=== PATIENT | female | born 1990 ===

== ENCOUNTER 2018-01-13 20:05 | Inpatient (IN) | payer OTHER ==
[~2018-01-13] VITALS: Ht 162.6 cm; Wt 87.5 kg
[2018-01-13 21:27] LABS: ABSOLUTE BASOPHIL COUNT 0 /CUMM (0.0-0.2); ABSOLUTE EOSINOPHIL COUNT 0.1 /CUMM (0.0-0.7); ABSOLUTE GRANULOCYTE CT 6.1 /CUMM (1.4-6.5); ABSOLUTE MONOCYTE COUNT 0.7 /CUMM (0.10-0.60); BASOPHIL % 0.3 % (0.0-2.0); EOSINOPHIL % 0.9 % (0-5); GRANULOCYTE % 77.6 % (42.2-75.2); HEMATOCRIT 39.2 % (37-47); MEAN CORPUSCULAR HGB 33.2 PG (27.0-31.0); MEAN CORPUSCULAR HGB CONC 34.8 G/DL (33.0-37.0); MEAN CORPUSCULAR VOLUME 95.2 FL (81.0-99.0); MEAN PLATELET VOLUME 8.2 FL (7.4-10.4); PLATELET COUNT 215 /CUMM (130-400); RED BLOOD CELL CT 4.12 /CUMM (4.20-5.40); WHITE BLOOD CELL COUNT 7.9 /CUMM (4.8-10.8)
--- NOTE | 2018-01-14 01:31 | History & Physical ---
General Information and HPI MD Statement: I have seen and personally examined DAYNA KELLY and documented this H&P. The patient is a 27 year old female at 41 weeks and 2 days gestation who presented with a chief complaint of labor pains, +FM, -ROM,-VB.. 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 EENTM: Denies: blurred vision, double vision, visual changes. Cardiovascular: Denies: chest pain, palpitations. Respiratory: Denies: cough, short of breath. GI: Denies: diarrhea, nausea, vomiting. Genitourinary: Denies: frequency. Neurological/Psychological: Denies: anxiety, depressed. Exam & Diagnostic Data Last 24 Hrs of Vital Signs/I&O vss Obstetric Exam Wgt Gained During : 40# Pelvimetry: seems adequate Dilation (cm): 1 Effacement (%): 50 Station: -2 Membranes: intact Fluid: unknown Fundal Height (cm): 39 Multiple Gestation? No Contractions: q4-5 min Infant #1 - FHR Baseline: 144 Category: 1 Estimated Weight: 3600g Presentation: vtx Patient for Induction? No Physical Exam General Appearance Alert, Oriented X3, Cooperative, Mild Distress Skin No Rashes HEENT Atraumatic Neck Supple Cardiovascular Regular Rate Lungs Clear to Auscultation Abdomen Soft Neurological Normal Gait, Normal Speech, Strength at 5/5 X4 Ext Labs Blood Type & Rh: O POS Antibody Screen: NEG Hct/Hgb & Platelets #1: 40.3/13.6/217 Hct/Hgb & Platelets #2: 35.8/12.2/197 Rubella: IMMUNE VDRL #1: NR VDRL #2: NR HbsAg: NEG HIV #1: NNR HIV #2 NR 1 Hr P Group B Strep: NEG Initial Ultrasound: 06/23/17 [id number] Anatomy Ultrasound: 08/27/17 NORMAL Ultrasound for EFW: 01/02/18 41%TILE Genetic Testing: CF NEG Last 24 Hrs of Labs/Chaim: Laboratory Tests 01/13/18 2030: CBC w Diff NO MAN DIFF REQ, RBC 4.12 L, MCV 95.2, MCH 33.2 H, MCHC 34.8, RDW 13.0, MPV 8.2, Gran % 77.6 H, Lymphocytes % 12.6 L, Monocytes % 8.6, Eosinophils % 0.9, Basophils % 0.3, Absolute Granulocytes 6.1, Absolute Lymphocytes 1.0 L, Absolute Monocytes 0.7 H, Absolute Eosinophils 0.1, Absolute Basophils 0, Urinalysis LIGHT H, Urine Color YEL, Urine Clarity HAZY H, Urine pH 7.0, Ur Specific Glenn 1.010, Urine Protein NEG, Urine Ketones NEG , Urine Nitrite NEG, Urine Bilirubin NEG, Urine Urobilinogen 0.2, Ur Leukocyte Esterase SMALL H, Ur Microscopic SEDIMENT EXAMINED, Urine RBC 1-3, Urine WBC 1- 3 H, Ur Epithelial Cells MOD H, Urine Bacteria MOD H, Urine Mucus FEW, Urine Hemoglobin SMALL H, Urine Glucose NEG Assessment/Plan Assessment/Plan: EARLY LABOR POST DATES PT HAS NOT SLEPT IN SEVERAL NIGHTS PLAN ms/visteral TO SLEEP CONSIDER INDUCTION IN AM As Ranked By This Provider Problem List: 1. Post-dates 2. Normal labor Core Measures Venous Thromboembolism VTE Risk Factors / No Mechanical VTE Prophylaxis d/t Early Ambulation No VTE Pharm Prophylaxis d/t LowRisk-No Interven Req'd Attending MD Review Statement Attending Statement Attending MD Statement: examined this patient, discussed with family, discussed w/nursing
[2018-01-14] MEDS ORDERED: PRENATAL MULTI1 EAC2 PO (08:22)
--- NOTE | 2018-01-14 12:21 | PN- OBGYN ---
Subjective Subjective: Tolerating labor well. Breathing through UCs. Declines any type of pain medication at this time. Objective Last 24 Hrs of Vital Signs/I&O Intake & Output 01/14 1600 01/14 0800 01/14 0000 Intake Total Output Total Balance Patient 193 lb Weight Physical Exam: Cervix 5cm/100% per nursing, membranes intact FHR 140, Category 1, no decels. UCs q4, moderate Obstetric Exam Dilation (cm): 5 Effacement (%): 100 Station: -1 Membranes: intact Fluid: clear Multiple Gestation? No Contractions: q4 Infant #1 - FHR Baseline: 144 Category: 1 Estimated Weight: 3600g Presentation: vtx Assessment/Plan Assessment/Plan spontaneous active labor in a primipara - con't monitoring -OOB ad brian Problem List: 1. Normal labor
--- NOTE | 2018-01-15 07:40 | PN- OBGYN ---
Surgical Brief Attending Note Brief Attending Note: Cervix remained 8-9cm for many hours. Pt. breathing with UCs and tolerating the pain quite well. She has been OOB, on the ball, and ambulating. FHR 145, cat. 1, rare variable. light mec on AROM in the evening. Towards MN patient finally agreed to an epidural, which helped her relax. Her UCs spaced apart so Pitocin augmentation was initiated with her consent. She slept for a few hours. Upon awakening she was fully dilated early this morning, and she started pushing with Nursing at 6am. She pushed well and delivered one hour later. Peds was called to be present for the delivery due to the meconium.
--- NOTE | 2018-01-15 07:49 | Labor & Delivery Summary ---
Delivery Summary Vaginal Delivery: Vaginal: spontaneous Episiotomy/Lacerations: Episiotomy/Lacerations: left lateral vaginal wall laceration Repair: 2.0 chromic in layers Anesthesia: epidural in place Placenta: Placenta: spontanteous, normal, 3 vessel Anesthesia: block Apgars - 1 Min: 8 Apgars - 5 Min: 9 Additional Comments: Primigravida was delivered at term, spontaneously, of a single viable female , 8,9,9, from the ANABEL position over an intact perineum. Clear AF, 3VC, placenta delivered spontaneously and intact. Repair of left vaginal wall laceration with 2.0 chromic suture. Cervix, perineum, rectal sphincter and mucosa intact. EM cavity clean of clots/membranes. Fundus firm, good hemostasis. EBL 250. Sponge counts correct, all sharps disposed. Patient tolerated delivery well.
[2018-01-16 08:03] LABS: ABSOLUTE BASOPHIL COUNT 0 /CUMM (0.0-0.2); ABSOLUTE EOSINOPHIL COUNT 0.1 /CUMM (0.0-0.7); ABSOLUTE GRANULOCYTE CT 7.9 /CUMM (1.4-6.5); ABSOLUTE MONOCYTE COUNT 0.9 /CUMM (0.10-0.60); BASOPHIL % 0.3 % (0.0-2.0); EOSINOPHIL % 0.7 % (0-5); GRANULOCYTE % 79.9 % (42.2-75.2); MEAN CORPUSCULAR HGB 32.8 PG (27.0-31.0); MEAN CORPUSCULAR HGB CONC 33.8 G/DL (33.0-37.0); MEAN PLATELET VOLUME 8.1 FL (7.4-10.4); PLATELET COUNT 177 /CUMM (130-400); RBC DISTRIBUTION WIDTH 13.4 % (11.5-14.5); RED BLOOD CELL CT 3.61 /CUMM (4.20-5.40); WHITE BLOOD CELL COUNT 9.9 /CUMM (4.8-10.8)
--- NOTE | 2018-01-16 15:10 | PN- OBGYN ---
Surgical Brief Attending Note Brief Attending Note: pt feeling well. amb / void / ariel po. +bf. pain well controlled. baby girl - heaven afeb, v/ss abd soft nt ff debbie mild lochia ext nt +2 b/l le ed hct 39-->35 ppd 1 s/p , doing well -cont routine pp care
--- NOTE | 2018-01-17 09:49 | PN- OBGYN ---
Surgical Brief Attending Note Brief Attending Note: pt feeling well. amb / void / ariel po. min cramps. afeb, v/ss nad abd soft nt ff debbie min lochia ext nt +2 b/l le ed a/p ppd 2 s/p , doing well -d/c home w/ office f/u 2 wks -d/c instructions reviewed
== END 2018-01-17 10:45 | DRG 775 ==
LOC: CBCO 20:05 → GNO 21:33
PROVIDERS: Obstetrics & Gynecology
PROC: 0UQGXZZ Repair Vagina, External Approach (ICD-10-PCS; principal; 2018-01-15)
PROC: 10E0XZZ Delivery of Products of Conception, External Approach (ICD-10-PCS; principal; 2018-01-15)
DX: O48.0 Post-term pregnancy (principal); O71.4 Obstetric high vaginal laceration alone; Z3A.41 41 weeks gestation of pregnancy; Z37.0 Single live birth
CPT/HCPCS: GNOP; GNOS; 36415; 81001; 87086; J7120